=== PATIENT | male | born 1985 | race Caucasian/White ===

== ENCOUNTER 2024-12-15 13:06 | Inpatient (IN) | payer MEDICAID, SELFPAY ==
[2024-12-15 13:55] VITALS: BP 141/79; PULSE 82; RESP 18; TEMP 37.1; O2SAT 98
[2024-12-15 14:12] VITALS: BMI 29.6
--- OUTSIDE RECORDS SUMMARY | 2024-12-15 14:18 | XMS_ITS | Encounter Summary ---
Author Organization [facility] Address [address] [place] [address] Care Team Providers Care Braid Cutter Name Role Phone Salvador Madrigal MD Primary Care Provider Unavaila ble Encounter Details Date Type Department Care Team (Late st Contact Info) Description 02/15/2018 Orders Only [facility] [address] [place] [address] Salvador Madrigal MD Social History Tobacco Use Types Packs/Day Years Used Date Smoking Tobacco: Never Smokeless Tobacco: Never Alcohol Use Standard Drinks/Week Comments Yes 0 (1 standard drink = 0.6 oz pur e alcohol) occasional social Sex and Gender Information Value Date Recorded Sex Assigned at Not on file Legal Sex Male 10:16 PM EDT Gender Identity Not on file Sexual Orientation Not on file documented as of this encounter Progress Notes * Salvador Madrigal MD - 02/18/2018 4:23 PM EDT muscle enzyme elevated. You do have some muscle injury your red which can explain your pain and weakness. Keep good oral hydration. Avoid any strenuous exercise or pain triggered activity. Recheck CKnext February 22. documented in this encounter Plan of Treatment Not on file documented as of this encounter Procedures * Due to [place] [employer] law, this organization might not be sharing negative HIV tests. Procedure Name Priority Date/Time Associated Diagnosis Comments CREATINE KINASE (CK), SERUM Routine 02/15/2018 11:22 AM EDT Muscle pain documented in this encounter Results * Due to [place] [employer] law, this organization might not be sharing negative HIV tests. * (ABNORMAL) CREATINE KINASE (CK), SERUM (02/15/2018 11:22 AM EDT) CPK 545(H) 44 - 196 U/L [facility] 02/15/2018 11:2 2 AM EDT 02/15/2018 5:11 PM EDT Narrative Resulting Agency Comment [id number] us Salvador Madrigal MD LAB SAME DAY RESULT Final Resul t [facility] [address] [place] [address] documented in this encounter Visit Diagnoses Diagnosis Muscle pain Mylagia and myositis, unspecified documented in this encounter Additional Health Concerns Infection Onset Date Last Indicated Resolved Time COVID-19 Rule-Out 10/16/2020 10/16/2020 10/17/2020 12:07 PM EST documented as of this encounter Care Teams Braid Cutter Relationship Specialty Start Date End Date Salvador Madrigal MD PCP - General 11/12/17 documented as of this encounter
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
[2024-12-15 19:47] LABS: Alanine Aminotransferase 42 U/L (0-40); Albumin Level 4.8 g/dL (3.5-5.0); Alkaline Phosphatase 87 U/L (39-117); Anion Gap 14 (12-20); Aspartate Amino Transferase 48 U/L (5-37); Bilirubin Total 0.8 mg/dL (0.0-1.0); Blood Urea Nitrogen 19 mg/dL (9-16); Carbon Dioxide 27 mmol/L (22-29); Chloride 105 mmol/L (96-108); Creatinine Clr Calc Pharmacy 122.6; Estimated Glomerular Filt Rate > 60; Glucose Random 85 mg/dL (60-115); Potassium 4.2 mmol/L (3.3-5.1); Sodium 142 mmol/L (135-145); Total Protein 8.1 g/dL (6.5-8.0)
[2024-12-16 08:15] LABS: Estimated Average Glucose 105 mg/dL; Hemoglobin A1C 143.7898 umol/L; Hemoglobin A1c % 5.3 % (<6.0); Total Hemoglobin (HGBA1C) 4119.3517 umol/L
[2024-12-16 08:20] LABS: Cholesterol 216 mg/dL (<200); HDL Cholesterol 36 mg/dL (>40); LDL Cholesterol Calculated 164 mg/dL (<100); Triglycerides 84 mg/dL (<150)
[2024-12-16 08:31] VITALS: BP 124/60; PULSE 69; TEMP 36.9; O2SAT 98
[2024-12-16 08:35] LABS: TSH reflex Free T4 0.59 uIU/mL (0.32-4.0)
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
[2024-12-16 20:00] VITALS: BP 129/75; PULSE 74; TEMP 36.8; O2SAT 98
[2024-12-17 07:47] VITALS: BP 129/81; PULSE 62; TEMP 36.7; O2SAT 99
[2024-12-17 19:40] VITALS: BP 108/63; PULSE 68; TEMP 36.7; O2SAT 94
[2024-12-18 08:00] VITALS: BP 106/54; PULSE 57; TEMP 36.5; O2SAT 98
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
[2024-12-18 19:32] VITALS: BP 134/62; PULSE 87; TEMP 36.8; O2SAT 96
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
[2024-12-19 07:57] VITALS: BP 120/60; PULSE 64; RESP 16; TEMP 36.6; O2SAT 98
== END 2024-12-19 14:11 | disposition home or self-care (01) | DRG 751 ==
PROVIDERS: Admitting Provider Psychiatry & Neurology Psychiatry; Visit Provider Psychiatry & Neurology Psychiatry
DX: F33.1 Major depressive disorder, recurrent, moderate (principal); R45.851 Suicidal ideations
CPT/HCPCS: 36415; 80053; 80061; 83036; 84443

== ENCOUNTER → 2024-12-15 13:06 | Outpatient (BNV) | payer SELFPAY | PROVIDERS: Admitting Provider Psychiatry & Neurology Psychiatry; Visit Provider Student in an Organized Health Care Education/Training Program | DX: Z00.8 Encounter for other general examination (principal) | CPT/HCPCS: 99429 ==

== ENCOUNTER → 2024-12-15 13:06 | Outpatient (BNV) | payer SELFPAY | PROVIDERS: Admitting Provider Psychiatry & Neurology Psychiatry; Visit Provider Psychiatry & Neurology Psychiatry | DX: F33.1 Major depressive disorder, recurrent, moderate (principal) | CPT/HCPCS: 99231; 99232; 99238 ==